=== PATIENT | male | born 1940 | race Caucasian/White ===

== ENCOUNTER 2021-04-27 05:21 | Emergency (ER) | payer MEDICARE, OTHER ==
[~2021-04-27] VITALS: Ht 177.8 cm; Wt 81.7 kg
[2021-04-27] MEDS ORDERED: METO50ER PO (05:49)
[2021-04-27] MEDS ORDERED: CLOP75 PO (05:49)
[2021-04-27] MEDS ORDERED: PANT40 PO (05:50)
== END 2021-04-27 09:35 | disposition home or self-care (01) ==
LOC: ER 05:21
DX: L97.329 Non-pressure chronic ulcer of left ankle with unspecified severity (principal); I10 Essential (primary) hypertension; R58 Hemorrhage, not elsewhere classified; Z79.02 Long term (current) use of antithrombotics/antiplatelets; Z79.899 Other long term (current) drug therapy
CPT/HCPCS: 12001; 99282-25